=== PATIENT | male | born 1955 | race Caucasian/White ===

== ENCOUNTER → 2023-10-04 14:20 | Outpatient (REF) | payer MEDICARE, SELFPAY | LOC: RAD 14:20 | PROVIDERS: ATTENDING PHYSICIAN Nurse Practitioner Adult Health; FAMILY PHYSICIAN Family Medicine | DX: M25.512 Pain in left shoulder (principal) | CPT/HCPCS: 73030 ==

== ENCOUNTER → 2025-02-20 08:52 | Outpatient (REF) | payer OTHER, SELFPAY ==
--- NOTE | 2025-02-20 10:01 | CARDSERVLU ---
Echocardiogram with Lumason completed after protocol screening completed. Allergies verified.
Patent IV site: left AC
IV site flushed with 0.9% NaCl pre and post administration.
Diluted bolus method utilized to enhance visualization of ventricular young.
Total volume given: _3.0___ mL
Patient tolerated all procedures well without complications.
#22 roseline placed left AC. Lumason given. INT d/c'd. pressure held. no bleeding noted.
== END ==
LOC: RCS 08:52
PROVIDERS: ATTENDING PHYSICIAN Internal Medicine Cardiovascular Disease; FAMILY PHYSICIAN Family Medicine
DX: R06.09 Other forms of dyspnea (principal); R07.89 Other chest pain; I45.10 Unspecified right bundle-branch block; I44.4 Left anterior fascicular block; R53.83 Other fatigue; Z86.79 Personal history of other diseases of the circulatory system
CPT/HCPCS: 93306; Q9950

== ENCOUNTER → 2025-03-26 11:04 | Outpatient (REF) | payer OTHER, SELFPAY | LOC: HWRCS 11:04 | PROVIDERS: ATTENDING PHYSICIAN Internal Medicine Cardiovascular Disease; FAMILY PHYSICIAN Family Medicine | DX: R06.09 Other forms of dyspnea (principal); R07.89 Other chest pain; I45.10 Unspecified right bundle-branch block; I44.4 Left anterior fascicular block; R53.83 Other fatigue | CPT/HCPCS: 78452; 93017; A9500; J2785 ==

== ENCOUNTER → 2025-06-02 10:05 | Outpatient (REF) | payer OTHER, SELFPAY | LOC: DHSLP 10:05 | PROVIDERS: ATTENDING PHYSICIAN Internal Medicine; FAMILY PHYSICIAN Family Medicine | DX: G47.30 Sleep apnea, unspecified (principal); R06.83 Snoring | CPT/HCPCS: 95800 ==